=== PATIENT | female | born 1990 | race American Indian/Alaskan Native ===

== ENCOUNTER 2016-11-09 23:16 | Emergency (ER) | payer MEDICAID ==
[2016-11-10 00:09] LABS: Basophils % (Auto) 1.5 % (0.0-1.8); Eosinophils % (Auto) 1.6 % (0.0-4.3); Mean Corpuscular HGB Conc 29 % (30-34); Platelet Count 615 K/mm3 (140-440); White Blood Count 10.5 K/mm3 (4.5-11.0)
[2016-11-10 00:11] LABS: Hematocrit 26.8 % (30.3-42.9); Hemoglobin 7.8 gm/dl (10.1-14.3); Mean Corpuscular Hemoglobin 19 pg (28-32); Mean Corpuscular Volume 65 fl (79-97)
[2016-11-10 00:27] LABS: BUN/Creatinine Ratio 11.42; Blood Urea Nitrogen 8 mg/dL (7-17); Calcium 9.2 mg/dL (8.4-10.2); Carbon Dioxide 27 mmol/L (22-30); Glucose 120 mg/dL (65-100); Potassium 3.7 mmol/L (3.6-5.0); Sodium 135 mmol/L (137-145)
[2016-11-10 00:43] LABS: Anion Gap 17 mmol/L
[2016-11-10] MEDS ORDERED: MORPHINE IM ONE (02:49)
--- NOTE | 2016-11-10 02:51 | Emergency Department Report ---
ED General Adult HPI - General Chief complaint: Extremity Injury, Lower Stated complaint: NERVE PAIN, SWOLLEN FEET Time Seen by Provider: 11/10/16 02:38 Source: patient, RN notes reviewed, old records reviewed Mode of arrival: Ambulatory Limitations: No Limitations - History of Present Illness Initial comments: This is a 26-year-old female. She is previously unknown to me. She does not have a primary care doctor. 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 She reports bilateral hip pain which is greater in the right and left hip. The pain is sharp, and increases with palpation, standing up for a long period of time, and decreases with rest. It does not radiate anywhere. The patient reports that she has to do a lot of standing up for work. She has no chest pain. She has no shortness of breath. She also complains of lower extremity swelling. The swelling is somewhat painful. The patient incidentally notes that she is homeless, and the sleeping in a gymnasium. She reports that she does not have any place to go. there is no hematemesis, there is no bright red blood per rectum, she reports that she is not , and she further reports that she does not have heavy menstruation. -: Gradual Location: left, right, lower extremity Severity scale (0 -10): 10 Quality: aching Consistency: intermittent Improves with: medication, rest Worsens with: movement Associated Symptoms: rash (chronic skin lesions, which are not new, worse or different). denies: confusion, chest pain, cough, diaphoresis, fever/chills, headaches, loss of appetite, malaise, nausea/vomiting - Related Data Previous Rx's Medication Instructions Recorded Last Taken Type HYDROcodone/APAP 5-325 [[place] 1 each PO Q6HR PRN #16 tablet 11/27/13 Unknown Rx 5/325 mg] Methocarbamol [Robaxin] 750 mg PO BID PRN #14 tab 11/27/13 Unknown Rx traMADol [Ultram 50 MG tab] 50 mg PO Q6HR PRN #20 tablet 11/10/16 Unknown Rx Allergies Allergy/AdvReac Type Severity Reaction Status Date / Time aspirin Allergy Rash Verified 11/27/13 18:23 diphenhydramine HCl Allergy Rash Verified 11/27/13 18:23 [From Benadryl] ED Review of Systems ROS: Stated complaint: NERVE PAIN, SWOLLEN FEET Other details as noted in HPI Constitutional: denies: malaise Eyes: denies: vision change ENT: denies: hearing loss Respiratory: denies: cough Cardiovascular: denies: chest pain Gastrointestinal: denies: abdominal pain Genitourinary: denies: dysuria Musculoskeletal: myalgia Skin: lesions Neurological: denies: weakness ED Past Medical Hx - Past Medical History Hx Arthritis: Yes Hx Kidney Stones: Yes Additional medical history: tumoral calcinosis, HYPOGLYCEMIA - Surgical History Additional Surgical History: 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, CHRONIC OPEN SKIN WOUNDS - Social History Smoking Status: Never Smoker Substance Use Type: None - Medications Home Medications: Home Medications Medication Instructions Recorded Confirmed Last Taken Type HYDROcodone/APAP 5-325 [[place] 1 each PO Q6HR PRN #16 tablet 11/27/13 Unknown Rx 5/325 mg] Methocarbamol [Robaxin] 750 mg PO BID PRN #14 tab 11/27/13 Unknown Rx traMADol [Ultram 50 MG tab] 50 mg PO Q6HR PRN #20 tablet 11/10/16 Unknown Rx ED Physical Exam - General Limitations: No Limitations General appearance: alert, in no apparent distress - Head Head exam: Present: atraumatic, normocephalic - Eye Eye exam: Present: normal appearance, EOMI. Absent: nystagmus - ENT ENT exam: Present: normal exam, normal orophraynx, mucous membranes moist, normal external ear exam - Neck Neck exam: Present: normal inspection, full ROM. Absent: tenderness, meningismus - Respiratory Respiratory exam: Present: normal lung sounds bilaterally. Absent: respiratory distress, wheezes, rales, rhonchi, stridor - Cardiovascular Cardiovascular Exam: Present: regular rate, normal rhythm, normal heart sounds. Absent: bradycardia, tachycardia, irregular rhythm, systolic murmur, diastolic murmur, rubs, gallop - GI/Abdominal GI/Abdominal exam: Present: soft, normal bowel sounds. Absent: distended, tenderness, guarding, rebound, rigid, pulsatile mass - Extremities Exam Extremities exam: Present: normal inspection, normal capillary refill, pedal edema, other (there is a chronic well healing wound noted in the left axilla with no redness, pus or streaking. There is a chronic well-healing wound to the left flank with no redness, pus or streaking. The compartments are soft. There is no redness, pus or streaking to the bilateral hips or gluteal compartment. There is 1-2+ edema in the lower extremities, with no palpable cord, and a negative Homans sign. The patient walks with a slight limp. During the patient's extremity examination, I am escorted by ER clerk secretary Sissy Matias). Absent: joint swelling, calf tenderness - Back Exam Back exam: Present: normal inspection, full ROM. Absent: tenderness, CVA tenderness (R), CVA tenderness (L), muscle spasm, paraspinal tenderness, vertebral tenderness - Neurological Exam Neurological exam: Present: alert, oriented X3, normal gait, other (Extraocular movements intact. Tongue midline. No facial droop. Facial sensation intact to light touch in the V1, V2, V3 distribution bilaterally. 5 and 5 strength in 4 extremities.. Sensation is intact to light touch in 4 extremities.). Absent : motor sensory deficit - Psychiatric Psychiatric exam: Present: normal affect, normal mood - Skin Skin exam: Present: warm, dry, intact, normal color. Absent: rash ED Course Vital Signs 11/09/16 11/09/16 11/10/16 23:36 23:47 04:18 Temperature 98.2 F 98.2 F Pulse Rate 103 H 103 H 94 H Respiratory 18 16 Rate Blood Pressure 109/65 Blood Pressure 109/65 96/64 [Left] O2 Sat by Pulse 100 100 98 Oximetry - Reevaluation(s) Reevaluation #1: 11/10/16 04:41 Differential diagnosis: Musculoskeletal arthritic pain, acute exacerbation of muscular pain, renal insufficiency, hepatic insufficiency, DVT, venous insufficiency, congestive heart failure, chronic skin wounds, homelessness, incidental anemia Assessment and plan: 26-year-old female who presents with a primary complaint of what appears to be musculoskeletal pain. She felt markedly improved after morphine. She ambulates with a steady gait. She has a chronic wound in the left flank and left axilla which she is caring for on her own, and it does not appear to be acutely infected. Laboratory studies were not consistent with renal or hepatic insufficiency, and her physical exam and chest x-ray did not corroborate or suggest congestive heart failure. She has no DVT or pulmonary embolus risk factors, I d-dimer is elevated, I think this is most likely a false positive. The patient presented when ultrasound is not available to perform vascular duplex study, so the patient will be ordered for an outpatient venous duplex which she will be instructed to perform within the next 24 hours. Patient is noted incidentally to be anemic she is asymptomatic, she reports a history of anemia in the past. She can follow-up with a primary care doctor for this. Unfortunately, the patient is also undomiciled homeless, and has expressed interest in speaking to a case advocate and her social work case manager for resources in reference for outpatient shelters. At this point in time, it does not appear that there is any immediate medical condition that would require urgent admission to the hospital. The patient will be discharged, and she will remain in the ER pending evaluation by case management. She will be instructed to contact the vascular lab to arrange for outpatient DVT study. She'll be instructed to follow up with local primary care for her numerous chronic issues. ED Medical Decision Making - Lab Data Result diagrams: 11/09/16 23:57 11/09/16 23:57 Vital Signs 11/09/16 11/09/16 11/10/16 23:36 23:47 04:18 Temperature 98.2 F 98.2 F Pulse Rate 103 H 103 H 94 H Respiratory 18 16 Rate Blood Pressure 109/65 Blood Pressure 109/65 96/64 [Left] O2 Sat by Pulse 100 100 98 Oximetry Laboratory Last Values WBC 10.5 K/mm3 (4.5-11.0) 11/09/16 23:57 RBC 4.10 M/mm3 (3.65-5.03) 11/09/16 23:57 Hgb 7.8 gm/dl (10.1-14.3) L 11/09/16 23:57 Hct 26.8 % (30.3-42.9) L 11/09/16 23:57 MCV 65 fl (79-97) L 11/09/16 23:57 MCH 19 pg (28-32) L 11/09/16 23:57 MCHC 29 % (30-34) L 11/09/16 23:57 RDW 20.0 % (13.2-15.2) H 11/09/16 23:57 Plt Count 615 K/mm3 (140-440) H 11/09/16 23:57 Lymph % (Auto) 17.6 % (13.4-35.0) 11/09/16 23:57 [place] % (Auto) 4.6 % (0.0-7.3) 11/09/16 23:57 Eos % (Auto) 1.6 % (0.0-4.3) 11/09/16 23:57 Baso % (Auto) 1.5 % (0.0-1.8) 11/09/16 23:57 Lymph # 1.8 K/mm3 (1.2-5.4) 11/09/16 23:57 [place] # 0.5 K/mm3 (0.0-0.8) 11/09/16 23:57 Eos # 0.2 K/mm3 (0.0-0.4) 11/09/16 23:57 Baso # 0.2 K/mm3 (0.0-0.1) H 11/09/16 23:57 Seg Neutrophils % 74.7 % (40.0-70.0) H 11/09/16 23:57 Seg Neutrophils # 7.8 K/mm3 (1.8-7.7) H 11/09/16 23:57 PT 14.4 Sec. (12.2-14.9) 11/10/16 03:05 INR 1.13 (0.87-1.13) 11/10/16 03:05 D-Dimer 1189.98 ng/mlDDU (0-234) H 11/10/16 03:05 Sodium 135 mmol/L (137-145) L 11/09/16 23:57 Potassium 3.7 mmol/L (3.6-5.0) 11/09/16 23:57 Chloride 95.0 mmol/L (98-107) L 11/09/16 23:57 Carbon Dioxide 27 mmol/L (22-30) 11/09/16 23:57 Anion Gap 17 mmol/L 11/09/16 23:57 BUN 8 mg/dL (7-17) 11/09/16 23:57 Creatinine 0.7 mg/dL (0.7-1.2) 11/09/16 23:57 Estimated GFR > 60 ml/min 11/09/16 23:57 BUN/Creatinine Ratio 11.42 % 11/09/16 23:57 Glucose 120 mg/dL (65-100) H 11/09/16 23:57 Calcium 9.2 mg/dL (8.4-10.2) 11/09/16 23:57 Total Bilirubin 0.2 mg/dL (0.1-1.2) 11/10/16 03:05 Direct Bilirubin < 0.2 mg/dL (0-0.2) 11/10/16 03:05 Indirect Bilirubin 0.0 mg/dL 11/10/16 03:05 AST 12 units/L (5-40) 11/10/16 03:05 ALT < 5 units/L (7-56) L 11/10/16 03:05 Alkaline Phosphatase 121 units/L (35-129) 11/10/16 03:05 NT-Pro-B Natriuret Pep 186.9 pg/mL (0-450) 11/10/16 03:05 Total Protein 8.0 g/dL (6.3-8.2) 11/10/16 03:05 Albumin 3.0 g/dL (3.9-5) L 11/10/16 03:05 Albumin/Globulin Ratio 0.6 % 11/10/16 03:05 HCG, Quant < 2 mIU/mL (0-4) 11/10/16 03:05 - Radiology Data Radiology results: image reviewed interpreted by me: X-ray of the chest is negative for acute disease Critical care attestation.: If time is entered above; I have spent that time in minutes in the direct care of this critically ill patient, excluding procedure time. ED Disposition Clinical Impression: Leg pain, Anemia Disposition: DISCHARGED TO HOME OR SELFCARE Is pt being admited?: No Does the pt Need Aspirin: No Condition: Stable Instructions: Arthralgia (ED) Additional Instructions: follow up with a primary care doctor within the next 10-[address] Madrigal is a local primary care doctor. [facility] is a local medical clinic. An outpatient ultrasound has been ordered to rule out blood clot in the bilateral lower extremities. Please contact the following phone number to arrange the outpatient appointment for this test: [phone], anytime after 8 AM in the morning. Make certain to bring the requisition form with you when returning for the actual test. Take the pain medication as directed. If taking the pain medication, do not consume alcohol, drive, make important decisions. Return to the ER right away with fevers or chills, chest pain or shortness of breath, intractable nausea or vomiting, inability to tolerate liquid feeds. Referrals: PRIMARY CARE, [Primary Care Provider] - 3-5 Days TROY MADRIGAL MD [Staff Physician] - 3-5 Days [facility] [Provider Group] - 3-5 Days [facility] [Outside] - 3-5 Days
[2016-11-10 03:30] LABS: INR 1.13 (0.87-1.13)
[2016-11-10 03:46] LABS: Albumin/Globulin Ratio 0.6 %; Alkaline Phosphatase 121 units/L (35-129); Bilirubin,Total 0.2 mg/dL (0.1-1.2)
[2016-11-10 03:49] LABS: Alanine Aminotransferase < 5 units/L (7-56); Bilirubin,Direct < 0.2 mg/dL (0-0.2)
--- NOTE | 2016-11-10 09:50 | XRay Report ---
AP CHEST: HISTORY: Bilateral lower extremity swelling AP view of the chest demonstrates a normal mediastinal and cardiac contour with clear lungs and normal bony and soft tissue structures. IMPRESSION: Unremarkable AP chest.
[2016-11-10 11:33] VITALS: BP 90/63
== END 2016-11-10 11:33 | disposition home or self-care (01) ==
LOC: ED 23:16
DX: D64.9 Anemia, unspecified (principal); M79.604 Pain in right leg
CPT/HCPCS: 36415; 71010; 80048; 80074; 83880; 84702; 85025; 85379; 85610; 96372; 99284; J2270

== ENCOUNTER 2016-11-22 02:12 | Emergency (ER) | payer MEDICAID ==
[2016-11-22 03:00] LABS: Basophils % (Auto) 0.1 % (0.0-1.8); Eosinophils % (Auto) 0.6 % (0.0-4.3); Mean Corpuscular HGB Conc 28 % (30-34); Platelet Count 655 K/mm3 (140-440); Red Blood Count 4.02 M/mm3 (3.65-5.03); White Blood Count 6.9 K/mm3 (4.5-11.0)
[2016-11-22 03:10] LABS: Hematocrit 26.3 % (30.3-42.9); Hemoglobin 7.3 gm/dl (10.1-14.3); Mean Corpuscular Hemoglobin 18 pg (28-32); Mean Corpuscular Volume 65 fl (79-97); Red Cell Distribution Width 20.3 % (13.2-15.2)
[2016-11-22 03:16] LABS: Anion Gap 17 mmol/L; BUN/Creatinine Ratio 8.75; Blood Urea Nitrogen 7 mg/dL (7-17); Calcium 9.1 mg/dL (8.4-10.2); Carbon Dioxide 27 mmol/L (22-30); Chloride 97.4 mmol/L (98-107); Glucose 84 mg/dL (65-100); Potassium 3.8 mmol/L (3.6-5.0); Sodium 138 mmol/L (137-145)
[2016-11-22 03:32] LABS: INR 1.06 (0.87-1.13)
[2016-11-22 03:33] LABS: Partial Thromboplastin Time 40.6 Sec. (24.2-36.6)
[2016-11-22 08:20] LABS: Bilirubin,Urine NEG (Negative); Blood,Urine MOD (Negative); Ketones,Urine NEG (Negative); Leukocyte Esterase,Urine NEG (Negative); Mucus,Urine FEW /HPF; Nitrite,Urine NEG (Negative); Protein,Urine <15 mg/dL mg/dL (Negative); Urobilinogen,Urine < 2.0 mg/dL (<2.0)
[2016-11-22] MEDS ORDERED: MORPHINE IV ONE (08:54)
[2016-11-22] MEDS ORDERED: ZOFRAN IV ONE (08:54)
[2016-11-22] MEDS ORDERED: NACL ONE ×2 (08:55→10:16)
[2016-11-22 09:13] LABS: Total Iron Binding Capacity 239.4 mcg/dL (250-450)
--- NOTE | 2016-11-22 09:39 | Emergency Department Report ---
ED Chest Pain HPI - General Chief Complaint: Chest Pain Stated Complaint: CHEST AND HIP PAIN Time Seen by Provider: 11/22/16 08:36 Source: patient, old records reviewed Mode of arrival: Ambulatory Limitations: No Limitations - History of Present Illness Initial Comments: 26 yo female with a past medical history of arthritis, kidney stones, iron deficecency anemia, tumoral calcinosis, and chronic skin wounds presents to the hospital with complaints of left upper chest pain last night and bilateral hip pain secondary to chronic tumors. Patient has chest pain with described as sharp and intermittent and no longer present. Pain occurred left upper anterior part of the chest. No aggravating or alleviating factors reported. Patient denied nausea, vomiting, shortness of breath, diaphoresis, or unilateral leg swelling. Patient also complains of moderate bilateral hip pain secondary to flare of her calcinosis. No reports of fever or recent trauma. Medical record reviewed. Patient was seen and evaluated here 11/09/[address] Mike At time patient was noted to have elevated d-dimer and was recommended for outpatient ultrasound of bilateral lower extremities since patient did not have any respiratory or chest symptoms at that time but complained of leg pain. No medical record of outpatient ultrasound/doppler follow up as instructed. Patient has a history of iron deficiency anemia but she is not currently on any iron tablets. Hemoglobin on last visit was 7.8. Severity scale (0 -10): 0 - Related Data Previous Rx's Medication Instructions Recorded Last Taken Type traMADol [Ultram 50 MG tab] 50 mg PO Q6HR PRN #20 tablet 11/10/16 Unknown Rx Docusate Sodium [Colace] 100 mg PO BID PRN #20 capsule 11/22/16 Unknown Rx Ferrous Sulfate [Feosol 325 MG tab] 325 mg PO BID #60 tablet 11/22/16 Unknown Rx HYDROcodone/APAP 5-325 [Conifer 1 each PO Q6HR PRN #20 tablet 11/22/16 Unknown Rx 5/325] Allergies Allergy/AdvReac Type Severity Reaction Status Date / Time aspirin Allergy Rash Verified 11/27/13 18:23 diphenhydramine HCl Allergy Rash Verified 11/27/13 18:23 [From Benadryl] JEANINE score - Jeanine Score Age > 65: (0) No Aspirin use within the Past 7 Days: (0) No 3 or more CAD Risk Factors: (0) No 2 or more Angina events in past 24 hrs: (0) No Known CAD with more than 50% Stenosis: (0) No Elevated Cardiac Markers: (0) No ST Deviation Greater than 0.5mm: (0) No JEANINE Score: 0 ED Review of Systems ROS: Stated complaint: CHEST AND HIP PAIN Other details as noted in HPI Comment: All other systems reviewed and negative Other: Constitutional: No fevers chills Eyes: No eye pain visual changes ENT: No ear pain or throat pain Neck: Denies pain Respiratory: Denies cough wheezing shortness of breath Cardiovascular: Denies palpitations, syncope GI: Denies abdominal pain, nausea, vomiting, diarrhea : Denies dysuria Musculoskeletal: as per hpi Skin: Chronic wounds to left axillary, left lateral thorax, and right posterior thigh Neurologic: Denies headache, numbness, weakness Psychiatric: Denies suicidal ideation, hallucinations ED Past Medical Hx - Past Medical History Previous Medical History?: Yes Hx Arthritis: Yes Hx Kidney Stones: Yes Additional medical history: tumoral calcinosis, HYPOGLYCEMIA - Surgical History Past Surgical History?: Yes Additional Surgical History: 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, CHRONIC OPEN SKIN WOUNDS - Social History Smoking Status: Never Smoker Substance Use Type: None - Medications Home Medications: Home Medications Medication Instructions Recorded Confirmed Last Taken Type traMADol [Ultram 50 MG tab] 50 mg PO Q6HR PRN #20 tablet 11/10/16 11/22/16 Unknown Rx Docusate Sodium [Colace] 100 mg PO BID PRN #20 capsule 11/22/16 Unknown Rx Ferrous Sulfate [Feosol 325 MG tab] 325 mg PO BID #60 tablet 11/22/16 Unknown Rx HYDROcodone/APAP 5-325 [Conifer 1 each PO Q6HR PRN #20 tablet 11/22/16 Unknown Rx 5/325] ED Physical Exam - General Limitations: No Limitations - Other Other exam information: General: No limitations, patient is alert in no acute distress Head exam: Atraumatic, normocephalic Eyes exam: Normal appearance, pupils equal reactive to light, extraocular movements intact ENT: Moist mucous membrane, normal oropharynx Neck exam: Normal inspection, full range of motion Respiratory exam: Clear to auscultation bilateral, no wheezes, rales, crackles Cardiovascular: Normal rate and rhythm, normal heart sounds, chest wall nontender Abdomen: Soft, nondistended, and nontender, with normal bowel sounds, no rebound, or guarding Extremity: Bilateral hip pain with movement. Full range of motion. No deformity Back: Normal Inspection, full range of motion, no tenderness Neurologic: Alert, oriented x3, cranial nerves intact, no motor or sensory deficit Psychiatric: normal affect, normal mood Skin: Left axillary wound, left posterior lateral thorax wound, and right posterior thigh wound. Chronic without signs of acute infection or erythema ED Course Vital Signs 11/22/16 11/22/16 11/22/16 02:26 05:22 07:37 Temperature 97.9 F 97.5 F L Pulse Rate 81 67 66 Respiratory 18 18 14 Rate Blood Pressure 107/73 Blood Pressure 119/76 [Right] O2 Sat by Pulse 100 100 Oximetry 11/22/16 11/22/16 11/22/16 07:40 07:45 07:50 Temperature 97.5 F L Pulse Rate 68 65 62 Respiratory 15 13 14 Rate Blood Pressure 108/68 108/68 Blood Pressure 108/68 [Right] O2 Sat by Pulse 100 100 100 Oximetry 11/22/16 11/22/16 11/22/16 08:00 08:10 08:20 Temperature Pulse Rate 67 81 69 Respiratory 14 15 17 Rate Blood Pressure 100/69 100/69 100/69 Blood Pressure [Right] O2 Sat by Pulse 100 100 100 Oximetry 11/22/16 11/22/16 11/22/16 08:30 08:40 08:50 Temperature Pulse Rate 81 73 86 Respiratory 23 22 20 Rate Blood Pressure 100/69 100/69 100/69 Blood Pressure [Right] O2 Sat by Pulse 99 100 100 Oximetry 11/22/16 11/22/16 11/22/16 09:00 09:10 10:48 Temperature Pulse Rate 77 73 Respiratory 23 15 Rate Blood Pressure 102/72 102/72 89/53 Blood Pressure [Right] O2 Sat by Pulse 99 100 100 Oximetry 11/22/16 11/22/16 11/22/16 10:50 11:00 11:10 Temperature Pulse Rate Respiratory Rate Blood Pressure 89/53 88/53 88/53 Blood Pressure [Right] O2 Sat by Pulse 100 99 100 Oximetry 11/22/16 11/22/16 11/22/16 11:20 11:30 14:06 Temperature Pulse Rate 56 L Respiratory 16 Rate Blood Pressure 102/72 102/72 Blood Pressure 99/61 [Right] O2 Sat by Pulse 100 100 100 Oximetry - Reevaluation(s) Reevaluation #1: 11/22/16 13:40 Patient treated with morphine, Zofran, Toradol, in the ED with some improvement in pain. Conifer also provided prior to d/c. ED Medical Decision Making - Lab Data Result diagrams: 11/22/16 02:42 11/22/16 02:42 Lab Results 11/22/16 11/22/16 11/22/16 Range/Units 02:42 02:42 02:42 WBC 6.9 (4.5-11.0) K/mm3 RBC 4.02 (3.65-5.03) M/mm3 Hgb 7.3 L (10.1-14.3) gm/dl Hct 26.3 L (30.3-42.9) % MCV 65 L (79-97) fl MCH 18 L (28-32) pg MCHC 28 L (30-34) % RDW 20.3 H (13.2-15.2) % Plt Count 655 H (140-440) K/mm3 Lymph % (Auto) 30.2 (13.4-35.0) % [place] % (Auto) 7.5 H (0.0-7.3) % Eos % (Auto) 0.6 (0.0-4.3) % Baso % (Auto) 0.1 (0.0-1.8) % Lymph # 2.1 (1.2-5.4) K/mm3 [place] # 0.5 (0.0-0.8) K/mm3 Eos # 0.0 (0.0-0.4) K/mm3 Baso # 0.0 (0.0-0.1) K/mm3 Seg Neutrophils % 61.6 (40.0-70.0) % Seg Neutrophils # 4.2 (1.8-7.7) K/mm3 PT 13.7 (12.2-14.9) Sec. INR 1.06 (0.87-1.13) APTT 40.6 H (24.2-36.6) Sec. D-Dimer (0-234) ng/mlDDU Carbon Dioxide 27 (22-30) mmol/L BUN 7 (7-17) mg/dL Creatinine 0.8 (0.7-1.2) mg/dL Estimated GFR > 60 ml/min BUN/Creatinine Ratio 8.75 % Glucose 84 (65-100) mg/dL Calcium 9.1 (8.4-10.2) mg/dL Iron (37-170) ug/dL TIBC (250-450) mcg/dL % Saturation % Transferrin (192-382) mg/dl Troponin T < 0.010 (0.00-0.029) ng/mL HCG, Qual (Negative) Urine Color (Yellow) Urine Turbidity (Clear) Urine pH (5.0-7.0) Ur Specific [employer] (1.003-1.030) Urine Protein (Negative) mg/dL Urine Glucose (UA) (Negative) mg/dL Urine Ketones (Negative) mg/dL Urine Blood (Negative) Urine Nitrite (Negative) Urine Bilirubin (Negative) Urine Urobilinogen (<2.0) mg/dL Ur Leukocyte Esterase (Negative) Urine WBC (Auto) (0.0-6.0) /HPF Urine RBC (Auto) (0.0-6.0) /HPF U Epithel Cells (Auto) (0-13.0) /HPF Urine Mucus /HPF Urine HCG, Qual (Negative) 11/22/16 11/22/16 11/22/16 Range/Units 02:42 02:42 02:50 WBC (4.5-11.0) K/mm3 RBC (3.65-5.03) M/mm3 Hgb (10.1-14.3) gm/dl Hct (30.3-42.9) % MCV (79-97) fl MCH (28-32) pg MCHC (30-34) % RDW (13.2-15.2) % Plt Count (140-440) K/mm3 Lymph % (Auto) (13.4-35.0) % [place] % (Auto) (0.0-7.3) % Eos % (Auto) (0.0-4.3) % Baso % (Auto) (0.0-1.8) % Lymph # (1.2-5.4) K/mm3 [place] # (0.0-0.8) K/mm3 Eos # (0.0-0.4) K/mm3 Baso # (0.0-0.1) K/mm3 Seg Neutrophils % (40.0-70.0) % Seg Neutrophils # (1.8-7.7) K/mm3 PT (12.2-14.9) Sec. INR (0.87-1.13) APTT (24.2-36.6) Sec. D-Dimer 1375 H (0-234) ng/mlDDU Carbon Dioxide (22-30) mmol/L BUN (7-17) mg/dL Creatinine (0.7-1.2) mg/dL Estimated GFR ml/min BUN/Creatinine Ratio % Glucose (65-100) mg/dL Calcium (8.4-10.2) mg/dL Iron 18 L (37-170) ug/dL TIBC 239.40 L (250-450) mcg/dL % Saturation 7.52 % Transferrin 171 L (192-382) mg/dl Troponin T (0.00-0.029) ng/mL HCG, Qual Negative (Negative) Urine Color (Yellow) Urine Turbidity (Clear) Urine pH (5.0-7.0) Ur Specific [employer] (1.003-1.030) Urine Protein (Negative) mg/dL Urine Glucose (UA) (Negative) mg/dL Urine Ketones (Negative) mg/dL Urine Blood (Negative) Urine Nitrite (Negative) Urine Bilirubin (Negative) Urine Urobilinogen (<2.0) mg/dL Ur Leukocyte Esterase (Negative) Urine WBC (Auto) (0.0-6.0) /HPF Urine RBC (Auto) (0.0-6.0) /HPF U Epithel Cells (Auto) (0-13.0) /HPF Urine Mucus /HPF Urine HCG, Qual (Negative) 11/22/16 11/22/16 11/22/16 Range/Units 05:18 07:49 08:31 WBC (4.5-11.0) K/mm3 RBC (3.65-5.03) M/mm3 Hgb (10.1-14.3) gm/dl Hct (30.3-42.9) % MCV (79-97) fl MCH (28-32) pg MCHC (30-34) % RDW (13.2-15.2) % Plt Count (140-440) K/mm3 Lymph % (Auto) (13.4-35.0) % [place] % (Auto) (0.0-7.3) % Eos % (Auto) (0.0-4.3) % Baso % (Auto) (0.0-1.8) % Lymph # (1.2-5.4) K/mm3 [place] # (0.0-0.8) K/mm3 Eos # (0.0-0.4) K/mm3 Baso # (0.0-0.1) K/mm3 Seg Neutrophils % (40.0-70.0) % Seg Neutrophils # (1.8-7.7) K/mm3 PT (12.2-14.9) Sec. INR (0.87-1.13) APTT (24.2-36.6) Sec. D-Dimer (0-234) ng/mlDDU Carbon Dioxide (22-30) mmol/L BUN (7-17) mg/dL Creatinine (0.7-1.2) mg/dL Estimated GFR ml/min BUN/Creatinine Ratio % Glucose (65-100) mg/dL Calcium (8.4-10.2) mg/dL Iron (37-170) ug/dL TIBC (250-450) mcg/dL % Saturation % Transferrin (192-382) mg/dl Troponin T < 0.010 < 0.010 (0.00-0.029) ng/mL HCG, Qual (Negative) Urine Color Yellow (Yellow) Urine Turbidity Clear (Clear) Urine pH 6.0 (5.0-7.0) Ur Specific [employer] 1.018 (1.003-1.030) Urine Protein <15 mg/dl (Negative) mg/dL Urine Glucose (UA) Neg (Negative) mg/dL Urine Ketones Neg (Negative) mg/dL Urine Blood Mod (Negative) Urine Nitrite Neg (Negative) Urine Bilirubin Neg (Negative) Urine Urobilinogen < 2.0 (<2.0) mg/dL Ur Leukocyte Esterase Neg (Negative) Urine WBC (Auto) 2.0 (0.0-6.0) /HPF Urine RBC (Auto) 4.0 (0.0-6.0) /HPF U Epithel Cells (Auto) < 1.0 (0-13.0) /HPF Urine Mucus Few /HPF Urine HCG, Qual Negative (Negative) - EKG Data -: EKG Interpreted by Me (nsr 73, no stemi, no t wave inv) - Radiology Data Radiology results: report reviewed cxr: naf CT angio chest: naf Bilateral Doppler lower extremity: No DVT - Medical Decision Making Patient has anemia but it is around her baseline as she does not have any symptoms of anemia. She'll be treated with iron tablets twice a day with Colace. Patient also will be prescribed Conifer for pain. Outpatient follow-up with hematology and PMD will be encouraged. Chest pain is atypical with no cardiac risk factors, negative cardiac enzymes, normal EKG, and a CT angiogram negative for PE. Patient also has negative bilateral Dopplers. Elevation in d- dimer likely chronic related to underlying inflammatory condition or chronic wounds. - Differential Diagnosis pe, atypical cp, chronic pain Critical Care Time: No Critical care attestation.: If time is entered above; I have spent that time in minutes in the direct care of this critically ill patient, excluding procedure time. ED Disposition Clinical Impression: Iron deficiency anemia, Chronic pain, Calcinosis, Atypical chest pain, Elevated d-dimer, Chronic anemia Disposition: DISCHARGED TO HOME OR SELFCARE Is pt being admited?: No Does the pt Need Aspirin: No Condition: Stable Instructions: Chest Pain (ED), Chronic Pain (ED), Anemia (ED) Additional Instructions: Take the medication as prescribed. Please note that both the hydrocodone in the iron tablets may cause constipation. You have been prescribed Colace to help prevent constipation. If constipation develops you may also take over-the- counter medication. The iron tablets should help your blood count increase however, it is important to follow-up with her primary care doctor for recheck. Please return if you have symptoms of anemia as described on your discharge papers. 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
--- NOTE | 2016-11-22 10:49 | Cat Scan Report ---
CTA chest: History: Chest pain, elevated d-dimer. Findings: No evidence of aortic aneurysm or pulmonary embolism. Dilated pulmonary arteries suggestive of pulmonary arterial hypertension. No mediastinal mass or adenopathy. No pleural or pericardial effusion. Normal lung parenchyma. No discrete nodularity or consolidation. Impression: No evidence of pulmonary embolism. No acute lung changes.
[2016-11-22] MEDS ORDERED: TORADOL IV ONE ×2 (11:52)
--- NOTE | 2016-11-22 13:33 | Admit Criteria Form ---
Admission Criteria Documentation: ANEMIA, IRON DEFICIENCY OR UNSPECIFIED Clinical Indications for Inpatient Care (Place 'X' for any and all applicable criteria): Admission is indicated for ANY ONE of the following(1)(2)(3)(4)(5)(6)(7): [X] I. Inpatient admission required rather than observation care (Also use Anemia, Iron Deficiency or Unspecified: Observation Care guideline as appropriate) because of ANY ONE of the following: [] a) Hemodynamic instability that is severe or persistent [] b) Active bleeding that cannot be rapidly controlled [X] c) CVS symptoms (i.e., dyspnea, chest pain, heart failure) that are severe or persistent [] d) Neurologic symptoms (i.e., cognitive impairment, recurrent syncope or near syncope) that are severe or persistent [] e) Cardiac arrhythmias of immediate concern [] f) Acute peripheral ischemia (e.g., pulseless, cool, mottled, or cyanotic extremity) [] g) High-risk low platelet count [] h) Acute renal failure [] i) Ongoing transfusion for blood loss (greater than 2 units) [] j) IV fluid to replace significant ongoing (eg, >24 hours) losses (> 3 L/m2 per day) [] k) Pulmonary artery catheter monitoring [] l) Supplemental oxygen or respiratory treatments for over 24 hours that are performable only in acute inpatient setting [] m) Immediate inpatient surgery [] n) Other condition, treatment or monitoring requiring inpatient admission [] II Active massive hemorrhage [] III. Active hemolysis with rapidly progressive anemia [A](6) Extended stay beyond goal length of stay may be needed for (17)(18) []a) Diagnosed cause of anemia requiring longer hospitalization (eg, active GI bleeding, immune hemolysis requiring electrophoresis, complications of malignancy requiring acute care []b) Continued emergent anemia indicators (23) []c) Transfusion reactions []d) Associated leukopenia or thrombocytopenia needing inpatient care []e) Active comorbidities (eg, renal failure, heart failure) The original [facility] Care Guidelines content created by [facility] Care Guidelines has been revised. The portions of the content which have been revised are identified through the use of italic text or in bold. [facility] Guidelines has neither reviewed nor approved the modified material. All other unmodified content is copyright [facility] Care Guidelines. Please see references footnoted in the original [facility] edition 2016
[2016-11-22] MEDS ORDERED: NORCO 5/325 PO ONE (13:37)
[2016-11-22 14:07] VITALS: BP 99/61
--- NOTE | 2016-11-26 10:09 | Vascular Lab Report ---
LOWER EXTREMITY VENOUS DUPLEX: REASON FOR EXAM: Bilateral edema and elevated d-dimer. COMMENTS ON THE RIGHT: All veins visualized are freely compressible without evidence of internal echogenicity. Flow is spontaneous and phasic throughout. COMMENTS ON THE LEFT: All veins visualized are freely compressible without evidence of internal echogenicity. Flow is spontaneous and phasic throughout. IMPRESSION: No evidence of acute or chronic deep venous thrombosis in either lower extremity.
== END 2016-11-22 14:54 | disposition home or self-care (01) ==
LOC: ED 02:12
DX: D50.0 Iron deficiency anemia secondary to blood loss (chronic) (principal); G89.29 Other chronic pain; E83.59 Other disorders of calcium metabolism; R07.9 Chest pain, unspecified; R79.1 Abnormal coagulation profile
CPT/HCPCS: 36415; 71275; 80048; 81001; 81025; 83550; 84484; 84703; 85025; 85379; 85610; 85730; 93005; 93010; 93970; 96374; 96375; 99285; J1885; J2270; J2405; Q9967